=== PATIENT | male | born 1955 | race Caucasian/White ===

== ENCOUNTER 2018-06-01 19:11 | Observation (INO) | payer OTHER ==
[2018-06-01] MEDS ORDERED: NITROGLYCERIN SL TABS 0.4 MG TAB SUBLINGUAL STA ×3 (19:43)
[2018-06-01] MEDS ORDERED: ASPIRIN 81 MG PO STA (19:43)
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
--- NOTE | 2018-06-01 20:50 | XR ---
EXAMINATION TYPE: XR chest 2V DATE OF EXAM: 06/01/2018 COMPARISON: None HISTORY: 63-year-old male with chest pain TECHNIQUE: PA and lateral views FINDINGS: Median sternotomy wires are present. Clips. Heart borderline enlarged. Aorta within normal limits. Mi ld haziness prominence of the chronic appearance. No consolidation or pleural effusion. Strandy atele ctasis or scarring at the left midlung. IMPRESSION: Borderline heart size. There are chronic appearing changes without acute process seen.
[2018-06-01 21:51] LABS: Anisocytosis Slight; HCT 32.7 % (39.0-53.0); HGB 9.8 gm/dL (13.0-17.5); Hypochromasia Marked; MCH 21.9 pg (25.0-35.0); MCHC 29.9 g/dL (31.0-37.0); MCV 73.1 fL (80.0-100.0); Microcytosis Moderate; Platelet Count 216 k/uL (150-450); Poikilocytosis Slight; RBC 4.48 m/uL (4.30-5.90); RDW 17.9 % (11.5-15.5); WBC 4.6 k/uL (3.8-10.6)
[2018-06-01 22:09] LABS: Creatine Kinase 37 U/L (55-170)
[2018-06-01 22:15] LABS: ALT 26 U/L (21-72); AST 23 U/L (17-59); Albumin 3.9 g/dL (3.5-5.0); Alkaline Phosphatase 61 U/L (38-126); Anion Gap 11 mmol/L; Blood Urea Nitrogen 14 mg/dL (9-20); Calcium 9.5 mg/dL (8.4-10.2); Carbon Dioxide 22 mmol/L (22-30); Chloride 110 mmol/L (98-107); Glucose 182 mg/dL (74-99); Magnesium 1.7 mg/dL (1.6-2.3); Potassium 4.1 mmol/L (3.5-5.1); Sodium 143 mmol/L (137-145); Total Bilirubin 0.4 mg/dL (0.2-1.3); Total Protein 6.2 g/dL (6.3-8.2)
[2018-06-01 22:17] LABS: Anisocytosis (M) Present; Basophils # (M) 0.05 k/uL (0-0.2); Eosinophils # (M) 0.18 k/uL (0-0.7); Lymphocytes # (M) 1.29 k/uL (1.0-4.8); Monocytes # (M) 0.14 k/uL (0-1.0); Neutrophils # (M) 2.94 k/uL (1.3-7.7); Neutrophils % (M) 64 %; Nucleated Red Blood Cells 0 /100 WBC (0-0); Ovalocytes Present; Total Cells Counted 100
[2018-06-01 22:19] LABS: Creatine Kinase MB 0.6 ng/mL (0.0-2.4)
[2018-06-01 22:21] LABS: Troponin I <0.012 ng/mL (0.000-0.034)
[2018-06-01 22:27] LABS: Prothrombin Time 9.8 sec (9.0-12.0)
[2018-06-02] MEDS ORDERED: NITROGLYCERIN SL TABS 0.4 MG TAB SUBLINGUAL PRN (00:33)
[2018-06-02] MEDS ORDERED: NITROGLYCERIN OINT 1 INCH/GM PACKET TOPICAL SCH (06:00)
[2018-06-02] MEDS ORDERED: ASPIRIN 325 MG TAB PO SCH (09:00)
[2018-06-02] MEDS ORDERED: METOPROLOL TARTRATE 25 MG TAB PO SCH (09:15)
--- NOTE | 2018-06-02 09:31 | HP ---
HISTORY AND PHYSICAL CHIEF COMPLAINT: A 63-year-old white male presented to emergency room with chest discomfort early in the day, since resolved with nitro and returned an hour or so ago without any improvement. Radiation to his left arm. He had similar problems before with a heart attack. He had some associated shortness of breath and some sweatiness, emesis x1. ALLERGIES: To TYLENOL, IV DYE, MORPHINE, SHELLFISH, TRAMADOL, MILK. REVIEW OF SYSTEMS: Fourteen point review of systems negative except for as mentioned in HPI. PAST MEDICAL HISTORY: Atrial fibrillation, coronary artery disease, diabetes mellitus, hypertension, dyslipidemia, CABG surgery, heart catheterization with stent 7 times, IVC filter, left arm. SOCIAL HISTORY: No smoking. No alcohol. No illicit drugs. PHYSICAL EXAM: Vital signs stable. Afebrile. CARDIOVASCULAR: S1, S2. LUNGS: Clear. GI: Soft. PSYCH: Fair mood and affect. NEUROLOGIC: Alert and oriented x3. OPHTHALMOLOGIC: Pupils equal, round and reactive to light and accommodation. Temp 98.5, pulse 90s, respiratory 16 to 18, blood pressure 120s over 80s, O2 of 98. EKG atrial fibrillation. He is going to get a cardiac evaluation. He wanted to leave against medical advice, but he stayed. He is not going to be on any blood thinners at this time due to recent blood transfusion. He gets medical care in [place]. Will restart home medications. Await Cardiology recommendations. DINA / BARTOLO: [id number] /
[2018-06-02 09:32] VITALS: BMI 35.9
[2018-06-02 10:12] LABS: Creatine Kinase 44 U/L (55-170)
[2018-06-02 10:26] LABS: Creatine Kinase MB 0.9 ng/mL (0.0-2.4); Troponin I <0.012 ng/mL (0.000-0.034)
[2018-06-02 11:17] LABS: T4, Free (Free Thyroxine) 0.99 ng/dL (0.78-2.19)
[2018-06-02 12:02] LABS: Glucose,Whole Blood 155 mg/dL (75-99)
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
[2018-06-02 12:30] LABS: Cholesterol 140 mg/dL (<200); HDL Cholesterol 31 mg/dL (40-60); LDL Cholesterol,Calculated 78 mg/dL (0-99); Triglycerides 157 mg/dL (<150)
[2018-06-02] MEDS: PANTOPRAZOLE 40 MG TABLET PO SCH (13:06)
[2018-06-02] MEDS: glipiZIDE 5 MG TAB PO SCH (13:07)
[2018-06-02] MEDS: ISOSORBIDE MONONITRATE ER 30 MG TAB.ER.24H PO SCH (13:08)
[2018-06-02] MEDS: ASPIRIN 81 MG PO SCH (13:08)
[2018-06-02] MEDS: CLOPIDOGREL 75 MG TAB PO SCH (13:08)
[2018-06-02] MEDS: METOPROLOL TARTRATE 50 MG TAB PO SCH ×2 (13:09→20:05)
[2018-06-02 16:47] LABS: Iron Saturation 4.68 (15.00-50.00)
[2018-06-02 17:10] LABS: Glucose,Whole Blood 178 mg/dL (75-99)
[2018-06-02 18:17] LABS: Hemoglobin A1C 6.7 % (4.0-6.0)
[2018-06-02 19:46] VITALS: RESP 16
[2018-06-02 20:29] LABS: Glucose,Whole Blood 186 mg/dL (75-99)
[2018-06-02] MEDS ORDERED: ALPRAZolam 1 MG TAB PO SCH (21:00)
[2018-06-02] MEDS ORDERED: ATORVASTATIN 20 MG TAB PO SCH (21:00)
[2018-06-03 06:38] LABS: Glucose,Whole Blood 172 mg/dL (75-99)
[2018-06-03 07:44] VITALS: BP 105/67; PULSE 69; TEMP 97.9
[2018-06-03] MEDS: glipiZIDE 5 MG TAB PO SCH (09:18)
[2018-06-03] MEDS: PANTOPRAZOLE 40 MG TABLET PO SCH (10:48)
[2018-06-03] MEDS: METOPROLOL TARTRATE 50 MG TAB PO SCH (10:48)
[2018-06-03] MEDS: ISOSORBIDE MONONITRATE ER 30 MG TAB.ER.24H PO SCH (10:48)
[2018-06-03] MEDS: CLOPIDOGREL 75 MG TAB PO SCH (10:48)
[2018-06-03] MEDS: ASPIRIN 81 MG PO SCH (10:48)
--- NOTE | 2018-06-03 13:27 | ECHOF ---
Referral Reason:cp MEASUREMENTS -------- HEIGHT: 177.8 cm WEIGHT: 113.4 kg BP: RVIDd: 3.1 cm (< 3.3) IVSd: 1.3 cm (0.6 - 1.1) LVIDd: 5.4 cm (3.9 - 5.3) LVPWd: 1.4 cm (0.6 - 1.1) IVSs: 1.5 cm LVIDs: 4.4 cm LVPWs: 1.5 cm LAESV Index (A-L): 40.71 ml/m Ao Diam: 3.6 cm (2.0 - 3.7) AV Cusp: 2.3 cm (1.5 - 2.6) LA Diam: 4.2 cm (2.7 - 3.8) EPSS: 1.0 cm MV E Trever: 1.06 m/s MV DecT: 286 ms MV A Trever: 1.13 m/s MV E/A Ratio: 0.93 AR PHT: 563 ms RAP: 5.00 mmHg RVSP: 29.45 mmHg MV EF SLOPE: 69.98 mm/s (70 - 150) MV EXCURSION: 1.53 cm (> 18.000) FINDINGS -------- Atrial fibrillation. This was a technically adequate study. The left ventricular size is normal. There is mild concentric left ventricular hypertrophy. There is moderate global hypokinesis of LV . Overall left ventricular systolic function is moderately im paired with, an EF between 35 - 40 %. The right ventricle is normal in size and function. LA is moderately dilated 34-39 ml/m2 RA appears enlarged. Aortic valve is trileaflet and is mildly thickened. There is mild aortic regurgitation. There is no evidence of aortic stenosis. Mild mitral annular calcification present. There is trace to mild mitral regurgitation. Trace tricuspid regurgitation present. Right ventricular systolic pressure is normal at < 35 mmHg. There is no evidence of pulmonary hypertension. Trace/mild (physiologic) pulmonic regurgitation. The aortic root size is normal. Normal inferior vena cava with normal inspiratory collapse consistent with estimated right atrial pre ssure of 5 mmHg. There is no pericardial effusion. CONCLUSIONS -------- 1. Atrial fibrillation. 2. This was a technically adequate study. 3. The left ventricular size is normal. 4. There is mild concentric left ventricular hypertrophy. 5. There is moderate global hypokinesis of LV . 6. Overall left ventricular systolic function is moderately impaired with, an EF between 35 - 40 %. 7. The right ventricle is normal in size and function. 8. LA is moderately dilated 34-39 ml/m2 9. RA appears enlarged. 10. Aortic valve is trileaflet and is mildly thickened. 11. There is mild aortic regurgitation. 12. Mild mitral annular calcification present. 13. There is trace to mild mitral regurgitation. 14. Trace tricuspid regurgitation present. 15. Right ventricular systolic pressure is normal at < 35 mmHg. 16. There is no evidence of pulmonary hypertension. 17. Trace/mild (physiologic) pulmonic regurgitation. 18. The aortic root size is normal. 19. There is no pericardial effusion. VENEER JOINTER HELPER: Clif Catherine RDCS
== END 2018-06-03 09:15 | disposition left against medical advice (07) ==
LOC: EC 19:11 → 3OBS 06-02 00:35
PROVIDERS: ADMIT Family Medicine; ATTEND Family Medicine
DX: I25.110 Atherosclerotic heart disease of native coronary artery with unstable angina pectoris (principal); D62 Acute posthemorrhagic anemia; I25.2 Old myocardial infarction; I48.91 Unspecified atrial fibrillation; I10 Essential (primary) hypertension; E78.5 Hyperlipidemia, unspecified; E11.9 Type 2 diabetes mellitus without complications; Z79.02 Long term (current) use of antithrombotics/antiplatelets; Z79.82 Long term (current) use of aspirin; Z79.84 Long term (current) use of oral hypoglycemic drugs; Z79.899 Other long term (current) drug therapy; Z79.01 Long term (current) use of anticoagulants; Z91.041 Radiographic dye allergy status; Z88.6 Allergy status to analgesic agent; Z91.011 Allergy to milk products; Z88.5 Allergy status to narcotic agent; Z91.013 Allergy to seafood; Z95.1 Presence of aortocoronary bypass graft; Z95.5 Presence of coronary angioplasty implant and graft; Z95.828 Presence of other vascular implants and grafts; Z86.718 Personal history of other venous thrombosis and embolism
CPT/HCPCS: 99285 ×2; 36415; 93005; 93306; 84439; 83880; 80061; 80053; 84443; 82550 ×2; 82553 ×2; 83540; 83550; 83735; 84484 ×2; 85025; 85610; 85730; 83036; 71046; G0378 ×2